=== PATIENT | female | born 1945 ===

== ENCOUNTER 2024-09-27 06:41 | Day surgery (SDC) | payer OTHER ==
[2024-09-27] MEDS ORDERED: DIPHENHYDRAMINE HCL 50 MG/ML VIAL 1ML IV ONE (11:30)
[2024-09-27] MEDS ORDERED: fentaNYL CITRATE 50 MCG/ML AMPUL IV PUSH ONE (11:30)
[2024-09-27] MEDS ORDERED: MIDAZOLAM HCL 2 MG/2 ML VIAL IV ONE (11:30)
[2024-09-27] MEDS ORDERED: ENALAPRILAT DIHYDRATE 1.25 MG/ML VIAL IV ONE ×2 (11:30→13:00)
== END 2024-09-27 13:30 | disposition home or self-care (01) ==
LOC: AMB-ENDOS 06:41
PROVIDERS: ATTEND Surgery
DX: D12.0 Benign neoplasm of cecum (principal); K57.30 Diverticulosis of large intestine without perforation or abscess without bleeding; K52.89 Other specified noninfective gastroenteritis and colitis; K51.40 Inflammatory polyps of colon without complications; Z88.2 Allergy status to sulfonamides